=== PATIENT | female | born 1955 | race Caucasian/White ===

== ENCOUNTER 2017-08-18 21:09 | Emergency (ER) | payer BC ==
[~2017-08-18] VITALS: Ht 160 cm; Wt 86.2 kg
[~2017-08-18 21:09] MED LIST: COREG3.125 MG ORAL; CYMBALTA30 MG ORAL; PREDNISONE5 M3 PO
[2017-08-18 21:24] VITALS: BP 145/69
[2017-08-18] MEDS ORDERED: ADDERAL20 MG ORAL (21:34)
[2017-08-18] MEDS ORDERED: ZANTAC150 MG ORAL (21:34)
[2017-08-18] MEDS ORDERED: MOBIC7.5 MG ORAL (21:34)
[2017-08-18] MEDS ORDERED: GABAPENTIN800 MG ORAL (21:34)
[2017-08-18] MEDS ORDERED: PROZAC40 MG ORAL (21:34)
[2017-08-18] MEDS ORDERED: NORCO 10-325 T1 EACH ORAL (21:34)
[2017-08-18] MEDS ORDERED: LAMICTAL150 MG ORAL (21:34)
[2017-08-18 22:53] VITALS: BP 145/69
--- NOTE | 2017-08-18 22:56 | Emergency Room Report ---
History of Present Illness General Chief Complaint: Edema Source: Patient, Medical Record Present Illness HPI This is a 61-year-old female with multiple medical problem. She had a right hip total replacement done last week. She was in the hospital for 2 days and was discharged home. She is using a compression device and is ambulatory. She presents with chief complaint of right leg swelling. Worse than usual. Throbbing pain. Worse with walking. No trauma. Not on anticoagulation. Denies any other complaint. Allergies: Coded Allergies: No Known Allergies (Unverified , 09/09/13) Patient History Past Medical History: see triage record, old chart reviewed Past Surgical History: other Pertinent Family History: none Social History: Denies: smoking Now: No Immunizations: other Reviewed Nursing Documentation: PMH: Agreed; PSxH: Agreed Nursing Documentation-PMH Past Medical History: No History, Except For Hx Hypertension: Yes Hx Gastrointestinal Problems: Yes - GERD Hx Neurological Problems: Yes - Right Hip Replacement, Lymphedema lower legs, Nasal reconstruction Review of Systems Eye: Denies: eye pain, blurred vision ENT: Denies: ear pain, nose congestion, throat swelling Respiratory: Denies: cough, shortness of breath Cardiovascular: Denies: chest pain, palpitations Gastrointestinal: Denies: abdominal pain, diarrhea, nausea, vomiting Musculoskeletal: Reports: other - leg pain; Denies: back pain, joint pain Skin: Denies: rash Neurological: Denies: headache, numbness Endocrine: Denies: increased thirst, increased urine Hematologic/Lymphatic: Denies: easy bruising All Other Systems: negative except mentioned in HPI Physical Exam Vital Signs Date Time Temp Pulse Resp B/P (MAP) Pulse Ox O2 Delivery O2 Flow Rate FiO2 08/18/17 21:24 97.7 81 16 145/69 98 Room Air 97.7 vitals unremarkable Sp02 EP Interpretation: reviewed, normal General Appearance: well appearing, no apparent distress, alert Head: normocephalic, atraumatic Eyes: bilateral eye PERRL, bilateral eye EOMI ENT: hearing grossly normal, normal pharynx Neck: full range of motion, supple, no meningismus Respiratory: chest non-tender, lungs clear, normal breath sounds Cardiovascular #1: regular rate, rhythm, no murmur Gastrointestinal: normal bowel sounds, non tender, no mass, no organomegaly, no bruit, non-distended Musculoskeletal: back normal, normal range of motion, other - right leg with 2 + edema Psychiatric: mood/affect normal Skin: warm/dry Medical Decision Making Diagnostic Impression: Primary Impression: Peripheral edema ER Course Patient with right leg edema. This most likely dependent edema. No evidence of DVT. No fracture. We'll discharge home. Last Vital Signs Date Time Temp Pulse Resp B/P (MAP) Pulse Ox O2 Delivery O2 Flow Rate FiO2 08/18/17 21:53 81 16 Room Air 08/18/17 21:24 97.7 145/69 98 97.7 Status: unchanged Disposition: HOME, SELF-CARE Condition: Stable Patient Instructions: Peripheral Edema Additional Instructions: Elevate leg. Follow-up with your doctor in 7 days as needed. Return of worse. POONAM AGUILERA M.D. Aug 18, 2017 22:56
== END 2017-08-18 23:03 | disposition home or self-care (01) ==
LOC: EMR 23:00
DX: R60.0 Localized edema (principal); M79.604 Pain in right leg; Z96.641 Presence of right artificial hip joint; K21.9 Gastro-esophageal reflux disease without esophagitis
CPT/HCPCS: 93971; 99282